=== PATIENT | female | born 1945 | race Caucasian/White ===

== ENCOUNTER 2017-02-12 18:09 | Observation (INO) | payer OTHER ==
[2017-02-12] MEDS ORDERED: MAG HYDROX/AL HYDROX/SIMETH 30 ML UDCUP PO ONE ×3 (18:27→23:00)
[2017-02-12] MEDS ORDERED: LIDOCAINE 2% VISCOUS 15 ML UDCUP PO ONE ×3 (18:27→23:00)
[2017-02-12] MEDS ORDERED: HYOSCYAMINE SULFATE 0.125 MG TAB PO ONE ×3 (18:27→23:00)
[2017-02-12] MEDS ORDERED: NS 1,000 ML IV ONE (18:27)
--- NOTE | 2017-02-12 18:27 | EDPHY ---
General - History Smoking Status: Never smoked Narrative: CHIEF COMPLAINT: Irregular heartbeat HISTORY OF PRESENT ILLNESS: Patient reports feeling irregular heartbeat this afternoon. She describes feeling skipped beats, sometimes multiple beats. It was very irregular by palpation. She had no chest pain or shortness of breath with this. No nausea or vomiting. No diaphoresis. She feels that is related to her hiatal hernia. She feels it is worse when she leans forward. It is starting to improve at time of arrival to the emergency department. No recent fever or illness. She has had this in the past, and it was resolved by a GI cocktail. She was worked up for this by Cardiology and there is no diagnosis of atrial fibrillation, atrial flutter, V-tach or VFib. Pulse no thyroid dysfunction currently or in the past. History is positive for hypertension and diabetes, non-insulin dependent. No diagnosis of coronary artery disease. No other associated complaints or modifying factors. REVIEW OF SYSTEMS: Ten systems reviewed and are negative unless otherwise noted in the HPI EXAMINATION: General Appearance: Alert, no distress Head: normocephalic, atraumatic Eyes: Pupils equal and round, no conjunctival pallor or injection ENT, Mouth: Mucous membranes moist. Uvula midline. No erythema or edema. Neck: Normal inspection, supple, non-tender Respiratory: Lungs are clear to auscultation. No wheezing, rhonchi or crackles. Cardiovascular: Regular rate and rhythm. No murmur. Pulses intact distally and symmetrically. Gastrointestinal: Abdomen is nondistended. Neurological: A&O, nonfocal Skin: Warm and dry, no rash Extremities: Nontender, no pedal edema Psychiatric: Mood and affect normal DIFFERENTIAL DIAGNOSES: Including but not limited to in no particular order: Atrial fibrillation, a flutter, Acute Chest Pain, ACS, Stable Angina, Pneumonia, PE, duodenitis, gastritis, esophagitis, GERD, hiatal hernia MDM: 6:29 p.m. Patient is reporting irregular heartbeat. This occurred this afternoon and lasted until arrival to the emergency department. She describes sinus dysrhythmia versus is paroxysmal AFib or flutter. 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 No chest pain with this. She feels this may be related to her hiatal hernia. In the past, GI cocktail has helped with this. The laboratory studies, EKG are pending at this time. 7:30 p.m. Laboratory studies are within normal limits with exception of any clinically high D-dimer at 0.52. I discussed this with the patient recommended a CT scan of the chest to rule out PE. She has declined. 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 My clinical suspicion is low for PE as well. She is feeling better with a GI cocktail. 8:30 p.m. Patient still remains symptomatic when she lays supine. She does feel better when she sits upright. She still only has PVCs without signs of ischemia on her 12 lead. Given his symptomatic PVCs, we will proceed with admission for observation to the [facility]. I discussed the case with Dr. souza, and she will admit the patient. She is admitted in stable condition to observation status. EKG: Interpreted by Dr. Yadiel Esquivel. Sinus rhythm with PVCs. No acute ischemia SUPERVISION: This patient was independently evaluated without direct examination by the attending physician. Case was discussed with attending physician. (Roshan June ) Medical Decision Making: I did not see this patient while she was in the emergency department. However her care was discussed with the PA while the patient was in the emergency department. I agree with treatment plan and management (Yadiel Esquivel) - Diagnostics EKG Interpretation: EKG interpreted by me shows normal sinus rhythm normal interval. There is left axis deviation. Voltage evidence for LVH. Otherwise QRS is normal. There is no significant ST elevation or depression. There is 1 PVC. The rate is 81 ( Yadiel Esquivel) - Objective Vital Signs: Initial Vital Signs Temperature (C) 36.9 C 02/12/17 18:10 Heart Rate 88 02/12/17 18:10 Respiratory Rate 18 02/12/17 18:10 Blood Pressure 158/92 H 02/12/17 18:10 O2 Sat (%) 94 02/12/17 18:10 O2 Delivery Mode Room Air Allergies/Adverse Reactions: Sulfa (Sulfonamide Antibiotics) Allergy (Verified 02/12/17 18:15) Home Medications: Medication Instructions Recorded Aspirin EC [Aspirin EC 81 mg (*)] 81 mg PO DAILY 02/12/17 Estradiol [Estradiol 1 MG (*)] 1 mg PO DAILY 02/12/17 Herbals/Supplements -Info Only 1 ea PO DAILY 02/12/17 Lansoprazole [Prevacid] 30 mg PO DAILY 02/12/17 MAG CARB/AL HYDROX/ALGINIC AC 1 tbs PO DAILY 02/12/17 [Gaviscon Liquid] Metoprolol Succinate Xr [Toprol Xl 100 mg PO DAILY 02/12/17 100 mg (*)] Multivitamins [Multivitamin (*)] 1 tab PO DAILY 02/12/17 Naproxen Sodium [Aleve 220 MG (*)] 440 mg PO DAILY 02/12/17 Rougon-3 Fatty Acids [Fish Oil 1000 1,000 mg PO DAILY 02/12/17 mg (*)] Psyllium Husk [Metamucil] 0.52 gm PO HS 02/12/17 Vit C/Dl-E AC/Lut/Copper/Znox 1 cap PO DAILY 02/12/17 [Preservision Softgel] amLODIPine BESYLATE [Norvasc 5 mg 5 mg PO DAILY 02/12/17 (*)] metFORMIN HCL [Metformin HCl ER] 1,000 mg PO BID 02/12/17 Laboratory Results: Laboratory Results 02/12/17 18:37 02/12/17 18:37 Medications Given: Discontinued Medications Al Hydroxide/Mg Hydroxide (Maalox Susp) 30 ml PO ONCE ONE Stop: 02/12/17 18:28 Last Admin: 02/12/17 18:50 Dose: 30 ml Al Hydroxide/Mg Hydroxide (Maalox Susp) 30 ml PO ONCE ONE Stop: 02/12/17 19:57 Last Admin: 02/12/17 21:11 Dose: Not Given Al Hydroxide/Mg Hydroxide (Maalox Susp) 30 ml PO ONCE ONE Stop: 02/12/17 23:01 Last Admin: 02/12/17 23:23 Dose: 30 ml Hyoscyamine Sulfate (Levsin, Hyomax-Sl) 0.25 mg PO ONCE ONE Stop: 02/12/17 18:28 Last Admin: 02/12/17 18:50 Dose: 0.25 mg Hyoscyamine Sulfate (Levsin, Hyomax-Sl) 0.25 mg PO ONCE ONE Stop: 02/12/17 19:57 Last Admin: 02/12/17 21:11 Dose: Not Given Hyoscyamine Sulfate (Levsin, Hyomax-Sl) 0.25 mg PO ONCE ONE Stop: 02/12/17 23:01 Last Admin: 02/12/17 23:23 Dose: 0.25 mg Sodium Chloride (Ns) 1,000 mls @ 0 mls/hr IV ONCE ONE PRN Reason: Wide Open Stop: 02/12/17 18:28 Last Admin: 02/12/17 18:49 Dose: 1,000 mls Lidocaine (Lidocaine 2% Viscous) 15 ml PO ONCE ONE Stop: 02/12/17 18:28 Last Admin: 02/12/17 18:50 Dose: 15 ml Lidocaine (Lidocaine 2% Viscous) 15 ml PO ONCE ONE Stop: 02/12/17 19:57 Last Admin: 02/12/17 21:11 Dose: Not Given Lidocaine (Lidocaine 2% Viscous) 15 ml PO ONCE ONE Stop: 02/12/17 23:01 Last Admin: 02/12/17 23:22 Dose: 15 ml Departure - Departure Disposition: [facility] Inpatient Acute Clinical Impression: Irregular heart beat, PVC (premature ventricular contraction) Condition: Good
--- NOTE | 2017-02-12 18:34 | CPEKG ---
Heart Rate: 81 RR Interval: 741 P-R Interval: 188 QRSD Interval: 98 QT Interval: 380 QTC Interval: 441 P [place]: 50 QRS [place]: -16 T Wave [place]: 35 EKG Severity - ABNORMAL ECG - EKG Impression: SINUS RHYTHM EKG Impression: VENTRICULAR PREMATURE COMPLEX EKG Impression: PROBABLE LEFT VENTRICULAR HYPERTROPHY Electronically Signed By: Natalio Roca 12-Feb-2017 21:44:06
[2017-02-12 18:40] LABS: % IMMATURE GRANULYOCYTES 0.4 % (0.0-1.1); ABSOLUTE IMMATURE GRANULOCYTES 0.03 10^3/uL (0.00-0.10); ADD DIFF? NO; ADD MORPH? NO; ADD SCAN? NO; ATYPICAL LYMPHOCYTE FLAG 0 (0-99); FRAGMENT RBC FLAG 0 (0-99); HEMATOCRIT 44.3 % (38.0-47.0); LEFT SHIFT FLG 0 (0-99); LIPEMIA HEMOLYSIS FLAG 90 (0-99); MEAN CELL HEMOGLOBIN 29.8 pg (27.9-34.1); MEAN CELL HEMOGLOBIN CONCENTR. 33.9 g/dL (32.4-36.7); MEAN CELL VOLUME 87.9 fL (81.5-99.8); PLATELET CLUMPS FLAG 0 (0-99); PLATELET COUNT 247 10^3/uL (150-400); RED BLOOD CELL COUNT 5.04 10^6/uL (4.18-5.33); RED CELL DISTRIBUTION WIDTH 13.9 % (11.5-15.2)
[2017-02-12 18:49] LABS: APTT 25.7 SEC (23.0-38.0); INR 0.86 (0.83-1.16); PROTIME(PATIENT) 11.6 SEC (12.0-15.0)
[2017-02-12 19:01] LABS: ANION GAP 13 mEq/L (8-16); CALCIUM 10.1 mg/dL (8.5-10.4); CARBON DIOXIDE 21 mEq/l (22-31); CHLORIDE 104 mEq/L (97-110); CREATININE 0.8 mg/dL (0.6-1.0); GLOMERULAR FILTRATION RATE > 60; GLUCOSE 225 mg/dL (70-100); MAGNESIUM 1.7 mg/dL (1.6-2.3); POTASSIUM 4.4 mEq/L (3.5-5.2); SODIUM 138 mEq/L (134-144)
[2017-02-12 19:13] LABS: TROPONIN I < 0.012 ng/mL (0-0.034)
--- NOTE | 2017-02-12 23:15 | CPEKG ---
Heart Rate: 84 RR Interval: 714 P-R Interval: 232 QRSD Interval: 98 QT Interval: 404 QTC Interval: 478 P [place]: 40 QRS [place]: -18 T Wave [place]: 42 EKG Severity - ABNORMAL ECG - EKG Impression: SINUS RHYTHM EKG Impression: FIRST DEGREE AV BLOCK EKG Impression: PROBABLE LEFT ATRIAL ABNORMALITY EKG Impression: LEFT VENTRICULAR HYPERTROPHY Electronically Signed By: Home Leija 13-Feb-2017 09:03:38
[2017-02-12] MEDS ORDERED: ONDANSETRON 4 MG/2 ML VIAL IVP PRN (23:20)
[2017-02-12] MEDS ORDERED: ACETAMINOPHEN 325 MG TAB PO PRN (23:20)
[2017-02-12] MEDS ORDERED: ONDANSETRON DISINTEGRATING 4 MG TAB PO PRN (23:20)
[2017-02-12] MEDS: metFORMIN SR 500 MG TAB PO SCH (23:44)
--- NOTE | 2017-02-12 23:58 | GHP ---
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 She has a hiatal hernia, and she says that when she bends over she will often get symptomatic palpi tations. Also last night she ate salsa, which is something in the past she has been unable to christiano ate, but recently has since a late evening while kind of lying sitting upright in bed. These are al l things that can trigger her reflux symptoms. She denies recent orthopnea, PND, or lower extremity edema. She does occasionally get lower extremity edema in the heat. She also takes amlodipine. S he has no new exercise intolerance. She knows she is not particularly active. She has not had feve r, chills. She has not had nausea, vomiting, diarrhea, or other things that would disturb electroly aisha. She has no family history of sudden cardiac . Fifteen years ago, she had a workup for PV Cs that was unremarkable. She cannot recall if she wore an extended monitor. She has no classic anginal symptoms or new exercise intolerance. When I speak with her, she has bee n feeling symptomatic when she has PVCs. She is also noting she has some significant burning in her chest. REVIEW OF SYSTEMS: Complete 10-point review of systems conducted, negative except as noted in the H PI. PAST MEDICAL HISTORY: Palpitations as in the HPI, diabetes, hypertension, reflux, hiatal hernia. ALLERGIES: Sulfa, which she gets a rash and joint pains. MEDICATIONS: At home metformin, amlodipine, PreserVision, psyllium husk, fish oil, naproxen, multiv itamin, Toprol-XL, Gaviscon, lansoprazole, estradiol, enteric-coated aspirin. 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 She lives in [facility]. She lives by herself. FAMILY HISTORY: Reviewed and unremarkable. PHYSICAL EXAM: VITAL SIGNS: Temp 37, blood pressure 158/92, pulse 80, breathing 18, 94% on room ai r. GENERAL: No acute distress. HEENT: Sclerae anicteric. Oropharynx clear. Mucous membranes mo ist. NECK: Supple without lymphadenopathy or JVD. LUNGS: Clear to auscultation bilaterally. HEA RT: S1, S2. There is a holosystolic murmur heard best at the right upper sternal border. ABDOMEN: Soft, nontender, nondistended. LOWER EXTREMITIES: Without edema. Calves nontender. SKIN: With out rash. NEUROLOGIC: Exam is nonfocal. White count 8.4, hematocrit 44, platelets are 247,000. D-dimer is elevated at 0.5. Coag's are norm al. Sodium 138, potassium 4.4, chloride 104, bicarb 21, BUN 19, creatinine 0.8, glucose 225, magnes ium 1.7. BNP is 216, troponin is less than 0.012. TSH 3.5, lipase is 211. EKG interpreted by me s hows sinus at 81 with normal axis, so it is leftward. No ST or T-wave changes. I repeated an EKG b ecause of some chest burning and it was the same. Chest x-ray interpreted by me shows no acute card iopulmonary disease. It looks like cardiomegaly, but is . I discussed the case Roshan johnson in the emergency department. ASSESSMENT/PLAN: A 71-year-old female with symptomatic palpitations. 1. Palpitations. These are asymptomatic. She is on a beta-teresa, which is primary therapy. I w ill follow her on telemetry and have Cardiology see her in the morning. 2. Holosystolic murmur. Check echocardiogram in the morning. She does not have any symptoms attri butable to heart failure. 3. Elevated D-dimer. This presentation is not suggestive of VTE, and the D-dimer test is a very lo w positive predictive value. No further workup is indicated. 4. Diabetes. Continue her metformin. 5. Hypertension. Continue her Toprol and amlodipine. 6. Reflux. Continue her Prevacid. She has received 3 GI cocktails. We can give her another 1 in a few hours if she continues to have symptoms. 7. Prophylaxis. Pharmacologic prophylaxis indicated if in the hospital longer than 24 hours. For now, I anticipate discharge tomorrow. 8. Disposition. Observation status. /[id number]/MODL
[2017-02-13] MEDS ORDERED: PRESERVISION AREDS2 FORMULA EYE VIT 1 EACH PO SCH (08:00)
[2017-02-13 08:23] VITALS: TEMP 97.9; O2SAT 95
[2017-02-13] MEDS ORDERED: ALUMINUM HYDROXIDE PO SCH (09:00)
[2017-02-13] MEDS ORDERED: ESTRADIOL 1 MG TAB PO SCH (09:00)
[2017-02-13] MEDS ORDERED: MAGNESIUM CARBONATE PO SCH (09:00)
[2017-02-13] MEDS ORDERED: Herbals/Supplements -Info Only PO SCH (09:00)
[2017-02-13] MEDS ORDERED: METOPROLOL SUCCINATE XR 100 MG TAB PO SCH (09:00)
[2017-02-13] MEDS ORDERED: MULTIVITAMINS 1 EACH TAB PO SCH (09:00)
[2017-02-13] MEDS ORDERED: OMEGA-3 FATTY ACIDS 1,000 MG CAP PO SCH (09:00)
[2017-02-13] MEDS ORDERED: ALGINIC ACID PO SCH (09:00)
[2017-02-13] MEDS ORDERED: ASPIRIN EC 81 MG TAB PO SCH (09:00)
[2017-02-13] MEDS ORDERED: PANTOPRAZOLE SODIUM 40 MG TAB PO SCH (09:00)
[2017-02-13] MEDS ORDERED: amLODIPine BESYLATE 5 MG TAB PO SCH ×2 (09:00)
[2017-02-13] MEDS ORDERED: NAPROXEN SODIUM 220 MG TAB PO SCH (09:00)
[2017-02-13] MEDS: MBX SOLN 30 ML BOTTLE PO PRN ×2 (09:14→11:21)
[2017-02-13] MEDS: metFORMIN SR 500 MG TAB PO SCH (09:21)
[2017-02-13] MEDS ORDERED: SPIRONOLACTONE 25 MG TAB PO SCH (10:00)
--- NOTE | 2017-02-13 10:48 | GCON ---
[f rep st] CONSULTATION CARDIOLOGY CONSULT DATE OF CONSULTATION: 02/13/2017 CHIEF COMPLAINT: Palpitations. HISTORY OF PRESENT ILLNESS: We were asked by Dr. Jones to visit with the patient. The patient is a pleasant 71-year-old female who is a retired [employer]. She has a history of diabetes and hypertensi on, as well as hiatal hernia. Over the past day, she has had frequent palpitations that have previo usly been diagnosed as PVCs. She describes a skip and then a hard heartbeat associated with some ch est pressure. When she is not having PVCs, she does not have chest pressure. She has a little bit of dyspnea as well. She did not have presyncope or syncope. She did not have lower extremity edema , paroxysmal nocturnal dyspnea, or orthopnea. In the emergency department, her initial blood pressure was 158/92, but has been higher than that on the floor, up to 193/99. She has not had any arrhythmias overnight. She admits that she is not very active. She does not get exertional chest pressure, but does have s ome exertional dyspnea. She tells me that she had previous cardiac evaluation about 15 years ago wh en she was having more PVCs. This was at [facility]. I do not have these records. REVIEW OF SYSTEMS: CARDIOVASCULAR: As above. MUSCULOSKELETAL: She has significant spinal stenosi s and takes high-dose Aleve on a daily basis. : Denies dysuria or hematuria. GI: She does have a hiatal hernia and significant reflux. She has not had a GI evaluation for sometime. NEUROLOGIC: No history of stroke or TIA. DERMATOLOGIC: No issue. CONSTITUTIONAL: No fevers or chills. PUL MONARY: No significant problem. ALLERGIES: Sulfa, antibiotics. She has also had a cough with lisinopril, severe headache with Diov an, and general malaise when on a higher dose of Norvasc than 5 mg. PAST MEDICAL HISTORY: 1. Hypertension. 2. Diabetes. On metformin. 3. Hiatal hernia with reflux. 4. Spinal stenosis. OUTPATIENT MEDICATIONS: Metformin, amlodipine 5 mg daily, PreserVision, fish oil, naproxen 440 mg d aily, Toprol-XL 100 mg daily, lansoprazole, estradiol, and aspirin. SOCIAL HISTORY: The patient does not smoke cigarettes. She lives alone. She is a retired [employer]. FAMILY HISTORY: Not applicable to the current case. PHYSICAL EXAM: VITAL SIGNS: Blood pressure 193/99, heart rate 81, oxygen saturation 95% on room ai r. She is afebrile. Her respiratory rate is 14. TELEMETRY: Normal sinus rhythm. GENERAL: A well-appearing older female in no acute distress. HEENT: Sclerae are clear and free of jaundice. Mucous membranes are moist. CARDIOVASCULAR: JVP is less than 10. Carotids equal and 2 + bilaterally without bruit. Regular rate and rhythm without murmur, rub, or gallop. LUNGS: Clear to auscultation bilaterally without wheezes, rhonchi, or rales. ABDOMEN: Obese, soft, nontender, nondistended without obvious bruits, masses or hepatosplenomegaly. EXTREMITIES: Warm and well-perf used without cyanosis, clubbing, or edema. NEURO: Alert and oriented x3 without gross focal neurol ogical deficits. LABORATORY AND DIAGNOSTIC STUDIES: EKG x2: First EKG shows sinus rhythm with a single PVC. She do es have minimal inferolateral ST depression. Poor R-wave progression. Second EKG is similar, but w ithout ventricular ectopy. Chest x-ray, reviewed by me: Peribronchial thickening. Linear atelectasis and scarring in the left lung. Echocardiogram: Pending. LABORATORY DATA: White count 8.4, hematocrit 44, and platelets 247. D-dimer is minimally positive at 0.42. INR normal. Sodium 130, potassium 4.4, chloride 104, bicarb 21, BUN 19, creatinine 0.8. TSH normal. Lipase normal. BNP 216. Troponin negative x1. Glucose 225. Magnesium 1.7. Hemoglobin A1c and lipid profile are pending. ASSESSMENT AND PLAN: A 71-year-old female with cardiac risk factors of hypertension that is subopti freda controlled, diabetes, age, obesity. She presents with symptomatic PVCs. Her EKG is minimally abnormal. Troponin has been negative. She has not had any significant arrhythmic events on teleme try overnight, and currently feels well without PVCs. 1. Premature ventricular contractions: This may be exacerbated by hiatal hernia/reflux, as well as her poorly controlled hypertension. We will follow up her echocardiogram. It there are no signifi cant abnormalities on echocardiogram, I think she can be discharged for ongoing outpatient evaluatio n. This would include an exercise nuclear stress test or pharmacological nuclear stress test if she is unable to reach 85% of age-predicted maximum heart rate. I do think she needs adjunctive imagin g with her stress test due to resting ST abnormalities. Continue metoprolol for premature ventricul ar contractions. 2. Hypertension: Suboptimally controlled. She tells me that she has had adverse reactions to a 10 mg dose of amlodipine. We will continue amlodipine, as well as her outpatient metoprolol 100 mg da arash. I have added spironolactone. She cannot tolerate HCTZ or Lasix due to her severe sulfa allerg y. 3. Diabetes: Check hemoglobin A1c. Check lipid profile. She was encouraged to establish care wit h a local chamber magistrate. 4. Spinal stenosis: She is taking high-dose nonsteroidals. I discussed with the patient that this was not ideal for her blood pressure or overall cardiovascular risk. We will discuss this further as an outpatient. For now, she will try to cut down to 1 dose of Aleve daily. 5. Hormone replacement therapy: She remains on estradiol. We will have to discuss the risk/benefi t of this in the outpatient setting. Again, she was encouraged to establish care with an chamber magistrate. Thank you for allowing us to participate in the patient's care. We will follow up on her echocardio gram. As mentioned, if this shows no significant abnormalities and her blood pressure is improved, she may be discharged home with close outpatient followup. This includes an exercise nuclear stress test in our office and follow up with me. /[id number]/MODL
--- NOTE | 2017-02-13 11:27 | ECHO ---
[id number] + + [address] : : [place] [address] : : [phone] + + Adult Echocardiographic Report + + :Name: VERA MOCK SStudy Date: 02/13/2017 10:28 AM : : Hospital Admission Number: [id number] Loc ation: 144: :: 1945 Gender: Female Height: 64 in : :Age: 71 yrs Race: WH Weight: 214 lb : :Reason For Study: Eval LV Fx : : BSA: 2.0 me ters2 : :History: PVC's : + + MMode/2D Measurements \T\ Calculations IVSd: 1.0 cm LVIDd: 4.8 cm FS: 29.1 % Ao root diam: 3.1 cm LVPWd: 1.2 cm LVIDs: 3.4 cm EDV(Teich): 104.9 ml ACS: 1.6 cm ESV(Teich): 46.4 ml LA dimension: 3.8 cm EF(Teich): 55.7 % Normal Measurement Values: + + :LVIDd (3.5-5.7cm) IVSd (0.6-1.1cm) LVPWd (0.6-1.1cm) Aortic Root (2.0-3.7cm)Left Atrium (1.5-4.0cm): :LV Vol(d) (76-115ml) LV Vol(s) (29-48ml) Ejec Fraction (50-65%)PV Cesar (0.6- 1.2m/s) TV Cesar (0.4-1.0m/s) : :MV E Cesar (0.8-1.0m/s)MV A Cesar (0.3-1.0m/s)LVOT Cesar (0.7-1.2m/s) Asc Ao Cesar ( 0.9-1.8m/s) : + + Doppler Measurements \T\ Calculations MV E max cesar: Ao V2 max: LV V1 max: PA V2 max: 54.8 cm/sec 164.0 cm/sec 84.4 cm/sec 111.0 cm/sec MV A max cesar: Ao max PG: LV V1 max PG: PA max P.0 cm/sec 10.8 mmHg 2.8 mmHg 4.9 mmHg MV E/A: 0.53 Left Ventricle The left ventricle is normal in size. There is normal left ventricular wall thickness. The left ventricular ejection fraction is normal. There is Doppler evidence for diastolic dysfunction. Ejection Fraction = 55-60%. There is subtile basilar anteroseptal hypokinesis. Right Ventricle The right ventricle is normal in size and function. Atria The left atrial size is normal. Right atrial size is normal. Mitral Valve The mitral valve is normal in structure and function. There is no evidence of mitral valve prolapse. There is no mitral valve stenosis. There is no mitral regurgitation noted. Tricuspid Valve The tricuspid valve is normal in structure and function. There is trace tricuspid regurgitation. Aortic Valve The aortic valve is normal in structure and function. The aortic valve is trileaflet. There is no aortic stenosis. There is no aortic insufficiency. Pulmonic Valve The pulmonic valve is normal in structure and function. There is no pulmonic valvular regurgitation. Great Vessels The aortic root is normal size. Pericardium/Pleural There is no pericardial effusion. Conclusion A complete two-dimensional transthoracic echocardiogram was performed (2D, M-mode, Doppler and color flow Doppler). The left ventricular ejection fraction is normal. There is Doppler evidence for diastolic dysfunction. Ejection Fraction = 55-60%. There is subtile basilar anteroseptal hypokinesis. The right ventricle is normal in size and function. The left atrial size is normal. Right atrial size is normal. The mitral valve is normal in structure and function. The tricuspid valve is normal in structure and function. There is trace tricuspid regurgitation. The aortic valve is normal in structure and function. There is no pericardial effusion. No prior echo Final Reading Physician: Dr Jacquelyn Robertson electronically signed on 02/13/2017 11:26 AM Ordering Physician: Timothy Jernigan Performed By: Michael Thompson, CS
[2017-02-13 11:28] LABS: HEMOGLOBIN A1C 6.9 % (4.0-6.0)
--- NOTE | 2017-02-13 11:29 | PDDCSUM ---
Discharge Summary Discharge Summary: DISCHARGE SUMMARY FOLLOW-UP ITEMS: Lipid panel, hemoglobin A1c, creatinine BUN and lytes, nuclear medicine stress test DATE OF ADMISSION: 02/12/2017 DATE OF DISCHARGE: 02/13/17 DISCHARGE DIAGNOSES: 1. Symptomatic palpitations 2. Acute chest pain 3. Gastroesophageal reflux disease and hiatal hernia 4. Chronic hypertension CONSULTATIONS: Cardiology by Dr. Robertson PROCEDURES / IMAGING: None CHIEF COMPLAINT: Acute chest pain and palpitations SUBJECTIVE: Patient is feeling well at time of discharge PHYSICAL EXAM ON DISCHARGE: Systolic blood pressure 180, heart rate 80, afebrile overnight, satting on room air, pain level 0 10, alert awake oriented x3 LABS ON DISCHARGE: Glucose 225, CBC normal, D-dimer negative for age adjustment, creatinine 0.8, TSH 3.5 HOSPITAL COURSE BY PROBLEM: 1. Acute symptomatic palpitations. Most likely secondary to symptomatic PVCs. Patient is currently on a beta-teresa and this will be continued. Echocardiogram demonstrates no abnormalities. 2. Acute chest pain. Most likely atypical and secondary to gastroesophageal reflux disease with hiatal hernia. Patient seen in consultation by Dr. Robertson, she recommended outpatient nuclear medicine stress test. This will be arranged to [facility]. Patient does not require any further inpatient risk stratification. She was ruled out for pulmonary embolism with negative D-dimer for age adjustment. 3. Gastroesophageal reflux disease and hiatal hernia. Most likely cause of patient's chest discomfort is her hiatal hernia and resulting reflux. She is not taking maximum dose PPI therapy and I have recommended that she increase her Prevacid to twice daily dosing for 1 month and gauge response of symptoms. She could also add on an H2 teresa and she could use scheduled sucralfate. The present time, she would like to utilize an as-needed GI cocktail with viscous lidocaine and the up titration of the PPI. I recommend that she follow up with Dr. Cosme in the short term to evaluate how well this intervention is working and to consider scheduled sucralfate and H2 teresa. She is not currently experiencing any achalasia symptoms. 4. Chronic hypertension. Systolic blood pressure elevated during this hospitalization most likely secondary to distress from above as well as potential under treatment. Dr. Robertson recommended Aldactone 25 mg and patient will initiate this now and have repeat creatinine BUN and lytes performed this week. DISCHARGE MEDICATIONS: Please see official discharge medication reconciliation sheet in chart , Aldactone 25 mg daily, lansoprazole 30 mg twice daily, GI cocktail as needed, viscous lidocaine as needed. DISCHARGE INSTRUCTIONS: Please follow up with Dr. Robertson after stress test and labs have been performed, please schedule follow-up with GI of the [facility] next week, please establish care with Dr. Colindres.
[2017-02-13 11:41] LABS: CHOLESTEROL 244 mg/dL (140-220); CHOLESTEROL/HDL RATIO 4.98 RATIO (1.00-4.44); HIGH DENSITY LIPOPROTEIN 49 mg/dL (40-85); LDL/HDL RATIO 3.24 RATIO (1.00-3.22); LOW DENSITY LIPOPROTEIN 159 mg/dL (80-100); NON-HIGH DENSITY LIPOPROTEIN 195 mg/dL (90-129); TRIGLYCERIDE 180 mg/dL (35-135); VERY LOW DENSITY LIPOPROTEINS 36 mg/dL (8-25)
[2017-02-13 12:07] VITALS: PULSE 80; RESP 20
[2017-02-13 12:41] VITALS: BP 201/107
[2017-02-13] MEDS ORDERED: PSYLLIUM METAMUCIL 1 PKT PO SCH (21:00)
== END 2017-02-13 13:01 | disposition home or self-care (01) ==
LOC: F1N 21:09
PROVIDERS: ADMIT Hospitalist; ATTEND Hospitalist
DX: R00.2 Palpitations (principal); I10 Essential (primary) hypertension; E11.9 Type 2 diabetes mellitus without complications; K44.9 Diaphragmatic hernia without obstruction or gangrene; K21.9 Gastro-esophageal reflux disease without esophagitis; M48.00 Spinal stenosis, site unspecified
CPT/HCPCS: 71010; 93005; 93306; G0378

== ENCOUNTER → 2017-04-04 | Outpatient (CLI) | payer OTHER | LOC: FIMAGING 13:22 | PROVIDERS: ATTEND Internal Medicine | DX: Z12.31 Encounter for screening mammogram for malignant neoplasm of breast (principal) | CPT/HCPCS: G0202 ==

== ENCOUNTER → 2018-08-01 | Outpatient (CLI) | payer OTHER | LOC: FIMAGING 13:57 | PROVIDERS: ATTEND Internal Medicine | DX: Z12.31 Encounter for screening mammogram for malignant neoplasm of breast (principal) ==